=== PATIENT | male | born 1975 | race Caucasian/White ===

== ENCOUNTER 2016-12-12 16:36 | Emergency (ER) | payer OTHER ==
[~2016-12-12] VITALS: Ht 177.8 cm; Wt 96.7 kg
[2016-12-12 17:52] LABS: HEMATOCRIT 49.1 % (38.0-50.0); MCHC 34.4 G/DL (30.0-36.0); MEAN PLAT.VOLUME 9.4 uM^3 (9.0-12.4); PLATELET COUNT 297 K/uL (156-360); RBC DIS.WIDTH-CV 12.4 % (11.8-14.6); RBC DIS.WIDTH-SD 42.5 % (39-53); RED BLOOD COUNT 5.28 M/uL (4.00-5.50); WHITE BLOOD COUNT 12.2 K/uL (4.1-10.2)
[2016-12-12 18:04] LABS: CHLORIDE 106 mEq/L (99-109); POTASSIUM 4.3 mEq/L (3.7-5.4); SODIUM 140 mEq/L (136-147)
[2016-12-12 18:05] LABS: GLUCOSE 96 mg/dL (70-99)
[2016-12-12 18:07] LABS: ANION GAP 10 MEQ/L (2-14)
[2016-12-12 18:09] LABS: GFR ESTIMATE (CALCULATED) > 59 mL/min/
[2016-12-12 18:10] LABS: UREA NITROGEN (BUN) 17 mg/dL (9-23)
[2016-12-12 18:13] LABS: TROP-I INTERPRETATION NEGATIVE; TROPONIN-I < 0.01 ng/mL (0.0-0.30)
[2016-12-12 19:28] LABS: D-DIMER ELISA < 150.00 ng/mLDDU (<230)
[2016-12-12] MEDS ORDERED: TRAMADOL HCL50 MG PO (19:49)
[2016-12-12] MEDS ORDERED: NAPROSYN500 MG PO (19:49)
[2016-12-12] MEDS ORDERED: SKELAXIN800 MG PO (19:49)
[2016-12-12 19:58] VITALS: BP 121/92
== END 2016-12-12 20:00 | disposition home or self-care (01) ==
LOC: EME 16:36
PROVIDERS: Physician Assistant
DX: M94.0 Chondrocostal junction syndrome [Tietze] (principal); S29.011A Strain of muscle and tendon of front wall of thorax, initial encounter; X50.9XXA Other and unspecified overexertion or strenuous movements or postures, initial encounter; E78.5 Hyperlipidemia, unspecified; F17.210 Nicotine dependence, cigarettes, uncomplicated
CPT/HCPCS: 71020; 80048; 84484; 85027; 85379; 93005; 99281; 99284; J1885